=== PATIENT | female | born 1995 | race Caucasian/White ===

== ENCOUNTER 2016-07-20 15:52 | Emergency (ER) | payer MEDICAID, OTHER ==
[2016-07-20 16:23] VITALS: BP 110/74; PULSE 72; RESP 16; TEMP 97.4; O2SAT 99
--- NOTE | 2016-07-20 18:15 | ED PDOC ---
Lower Extremity Pain/Injury Time Seen by Provider: 07/20/16 16:58 Chief Complaint (Nursing): Lower Extremity Problem/Injury Chief Complaint (Provider): Lower Extremity Problem/Injury History Per: Patient History/Exam Limitations: no limitations Onset/Duration Of Symptoms: Days (x1 day) Current Symptoms Are (Timing): Still Present Additional Complaint(s): 21 y/o female who presents to the emergency department with a complaint of twisting the right ankle while wearing sandals after falling from the stairs yesterday. Associated with pain that radiating to her lower back and numbness. Patient states she heard a crack. Reports taking Tylenol for the relief of pain. PMD: None Past Medical History Reviewed: Historical Data, Nursing Documentation, Vital Signs Vital Signs: Last Vital Signs Temp 97.4 F L 07/20/16 16:20 Pulse 72 07/20/16 16:20 Resp 16 07/20/16 16:20 BP 110/74 07/20/16 16:20 Pulse Ox 99 07/20/16 16:20 - Medical History PMH: No Chronic Diseases - Surgical History Other surgeries: spinal sx at age 12 - Family History Family History: States: Unknown Family Hx - Social History Current smoker - smoking cessation education provided: No Alcohol: None Drugs: Denies - Home Medications Home Medications: Ambulatory Orders Medication Instructions Recorded Ibuprofen [Motrin] 600 mg PO Q6 #20 tab 07/20/16 oxyCODONE/Acetaminophen [Percocet 1 ea PO Q6 PRN #10 tab 07/20/16 5/325 mg Tab] Acetaminophen/Codeine 2 tab PO Q6H #20 tab 07/23/16 [Tylenol/Codeine 300 MG/30 MG] - Allergies Allergies/Adverse Reactions: Allergies Allergy/AdvReac Type Severity Reaction Status Date / Time No Known Allergies Allergy Verified 07/23/16 11:56 Review of Systems ROS Statement: Except As Marked, All Systems Reviewed And Found Negative Constitutional: Positive for: Other (Numbness of the legs) Musculoskeletal: Positive for: Back Pain (Lower), Foot Pain (Right Ankle) Physical Exam - Reviewed Nursing Documentation Reviewed: Yes Vital Signs Reviewed: Yes - Physical Exam Appears: Positive for: Non-toxic, No Acute Distress Head Exam: Positive for: ATRAUMATIC, NORMOCEPHALIC Skin: Positive for: Normal Color, Warm, Dry Eye Exam: Positive for: Normal appearance. Negative for: Conjunctival injection Neck: Positive for: Normal, Supple Extremity: Positive for: Other (Moderate edema and ecchymosis below lateral malleolus and extending over the base of the 5th. DP pulse 2+) Neurologic/Psych: Positive for: Alert, Oriented - ECG O2 Sat by Pulse Oximetry: 99 (RA) Pulse Ox Interpretation: Normal Medical Decision Making Medical Decision Making: Time: 16:58 Initial impression: Sprain rule out fracture Initial plan: --Ankle AP LAT 2 View RT (RAD) --Foot AP LAT RT (RAD) --Motrin 600 mg PO --Revaluation XR IMPRESSION: Acute slightly displaced fracture at the base of the right 5th metatarsal bone. Podiatry consult obtained. see note. Scribe Attestation: Documented by Savanna Thornton, acting as a scribe for Yuliya Shields. Provider Scribe Attestation: All medical record entries made by the Scribe were at my direction and personally dictated by me. I have reviewed the chart and agree that the record accurately reflects my personal performance of the history, physical exam, medical decision making, and the department course for this patient. I have also personally directed, reviewed, and agree with the discharge instructions and disposition. Disposition - Clinical Impression Clinical Impression: Foot fracture - Patient ED Disposition Is Patient to be Admitted: No - Disposition Referrals: [facility] [Outside] Podiatry Clinic [Outside] Disposition: Routine/Home Disposition Time: 20:00 Condition: STABLE Prescriptions: Ibuprofen [Motrin] 600 mg PO Q6 #20 tab oxyCODONE/Acetaminophen [Percocet 5/325 mg Tab] 1 ea PO Q6 PRN #10 tab PRN Reason: Pain, Severe (8-10) Instructions: Foot Fracture in Adults (ED) - POA Present On Arrival: Falls Or Trauma
--- NOTE | 2016-07-20 21:08 | CP.PCM.CON ---
History of Present Illness - History of Present Illness History of Present Illness: Patient is a 21 y/o healthy female who presents to the ED complaining of right foot pain. Points to the lateral midfoot as area of greatest pain. States that last night she tripped down a few stairs and describes an inversion type of injury to right foot. States she has not been able to walk on her right foot since the injury. Has just tried massaging the area, but to no relief. Also mentions significant swelling and bruising in the area. Denies F/C/N/V/ SOB. Review of Systems - Constitutional Constitutional: As Per HPI Past Patient History - Past Social History Alcohol: None Drugs: Denies - PSYCHIATRIC Hx Substance Use: No - SURGICAL HISTORY Other/Comment: spinal sx at age 12 - ANESTHESIA Hx Anesthesia: Yes Meds Home Medications: Home Medication List Medication Instructions Recorded Confirmed Type Ibuprofen [Motrin] 600 mg PO Q6 #20 tab 07/20/16 Rx oxyCODONE/Acetaminophen [Percocet 1 ea PO Q6 PRN #10 tab 07/20/16 Rx 5/325 mg Tab] Allergies/Adverse Reactions: Allergies Allergy/AdvReac Type Severity Reaction Status Date / Time No Known Allergies Allergy Verified 07/20/16 16:20 Physical Exam - Constitutional Appears: Well, No Acute Distress - Extremities Exam Additional comments: RLE exam: MSK: pain on palpation of the 5th metatarsal base. Pain on resisted eversion, plantarflexion and dorsiflexion with weakness. Vascular: Dp and PT pulses 2/4, CFT <3sec, temp unremarkable. Derm: Localized edema and ecchymosis of lateral midfoot. Skin intact. Neuro: Diminished light touch sensation of the 4th and 5th digits. - Neurological Exam Neurological exam: Alert, Oriented x3 - Psychiatric Exam Psychiatric exam: Normal Affect, Normal Mood - Additional Findings Additional findings: Right foot radiographs: Complete intra-articular, comminuted fracture of proximal 5th metatarsal base with proximal medial displacement of fracture fragments. Results - Vital Signs Recent Vital Signs: Last Vital Signs Temp 97.4 F L 07/20/16 16:20 Pulse 72 07/20/16 16:20 Resp 16 07/20/16 16:20 BP 110/74 07/20/16 16:20 Pulse Ox 99 07/20/16 18:20 Assessment & Plan - Assessment and Plan (Free Text) Assessment: 21 y/o female with right foot 5th metatarsal base fracture. Plan: -evaluated and treated with all questions addressed and answered. -discussed with Dr. Garces. -radiographs reviewed with patient to her understanding. -all conservative and surgical treatment options explained to the patient at length, as well as the possible need for surgical intervention. -Nazario compression and posterior splint applied to RLE. -advised to keep splint clean, dry and intact. -educated on RICE and NSAID use. -given crutches and advised to be NWB. -to follow up with Dr. Garces in the [facility] clinic.
--- NOTE | 2016-07-21 08:42 | RAD ---
PROCEDURE: Right Foot Radiographs. HISTORY: pain and swelling COMPARISON: None. FINDINGS: BONES: There is mildly displaced fracture at the base of the 5th metatarsal bone associated with displaced of small bony fragment. JOINTS: Normal. SOFT TISSUES: Normal. OTHER FINDINGS: None. IMPRESSION: Acute slightly displaced fracture at the base of the right 5th metatarsal bone.
--- NOTE | 2016-07-21 08:45 | RAD ---
PROCEDURE: Right Ankle Radiographs. HISTORY: pain and swelling COMPARISON: None FINDINGS: BONES: Normal. No fracture. JOINTS: Normal. No osteoarthritis. Ankle mortise maintained. Talar dome intact SOFT TISSUES: Normal. OTHER FINDINGS: None. IMPRESSION: No radiographic evidence of acute pathology.
== END 2016-07-20 20:52 | disposition home or self-care (01) ==
LOC: H.ER 15:52
DX: S92.351A Displaced fracture of fifth metatarsal bone, right foot, initial encounter for closed fracture (principal); S99.101A Unspecified physeal fracture of right metatarsal, initial encounter for closed fracture; W10.9XXA Fall (on) (from) unspecified stairs and steps, initial encounter; Y93.9 Activity, unspecified